=== PATIENT | female | born 1945 | race Caucasian/White ===

== ENCOUNTER → 2020-12-11 | Outpatient (CLI) | payer MEDICARE ==
[~2020-12-11] MED LIST: CLARITIN 10MG T10 MG PO; CRESTOR10 MG PO; DYAZIDE 37.5/251 EA PO; PREDNISONE10 MG PO; VITAMIN D250000 UNIT PO
== END ==
LOC: KOH-I 16:09
DX: M54.2 Cervicalgia (principal); M47.812 Spondylosis without myelopathy or radiculopathy, cervical region
CPT/HCPCS: 72040